=== PATIENT | male | born 1950 | race Two or more races ===

== ENCOUNTER 2023-09-17 11:33 | Outpatient (CLI) | payer OTHER | END 2023-09-17 11:46 | disposition home or self-care (01) | LOC: RAD 11:33 | PROVIDERS: ATTEND Orthopaedic Surgery | DX: M54.50 Low back pain, unspecified (principal); M25.551 Pain in right hip; M25.552 Pain in left hip; M25.561 Pain in right knee; M25.562 Pain in left knee ==